=== PATIENT | female | born 1985 | race Caucasian/White ===

== ENCOUNTER 2019-06-10 05:41 | Day surgery (SDC) | payer MEDICAID ==
[2019-06-06 16:22] LABS: BASOPHILS % (AUTO) 0.3 % (0-1); EOSINOPHILS # (AUTO) 0.1 X10'3 (0-0.9); EOSINOPHILS % (AUTO) 1.5 % (0-6); LYMPHOCYTES # (AUTO) 2.5 X10'3 (1.1-4.8); LYMPHOCYTES % (AUTO) 26.3 % (21-51); MEAN CORPUSCULAR HGB CONC 31.7 g/dL (33.0-36.5); MEAN CORPUSCULAR VOLUME 75.8 FL (78-98); MEAN PLATELET VOLUME 9.3 FL (7.4-10.4); MONOCYTES # (AUTO) 0.5 X10'3 (0-0.9); MONOCYTES % (AUTO) 5.6 % (2-12); NEUTROPHILS # (AUTO) 6.4 X10'3 (1.8-7.7); NEUTROPHILS % (AUTO) 66.3 % (42-75); PRE OP HEMATOCRIT 36.4 % (35.0-45.0); PRE OP HEMOGLOBIN 11.6 g/dL (12.0-16.0); PRE OP PLATELET COUNT 274 X10'3 (140-440); RED BLOOD COUNT 4.81 X10'6 (4.20-5.60)
[2019-06-06 16:36] LABS: ALBUMIN 3.4 G/DL (3.4-5.0); ALBUMIN/GLOBULIN RATIO 0.8 (1.1-1.5); ALKALINE PHOSPHATASE 85 IU/L (46-116); BLOOD UREA NITROGEN 9 MG/DL (7-18); BUN/CREATININE RATIO 9.9 (6.6-38.0); CALCIUM 8.7 MG/DL (8.5-10.1); CHLORIDE 104 MMOL/L (99-107); CREATININE 0.91 MG/DL (0.40-0.90); PRE OP ALT 30 U/L (30-65); PRE OP ANION GAP 7 (8-16); PRE OP AST 14 U/L (10-37); PRE OP BILIRUB, TOTAL 0.3 MG/DL (0.0-1.0); PRE OP GLUCOSE 87 MG/DL (70-104); PRE OP POTASSIUM 3.6 MMOL/L (3.4-5.1); PRE OP SODIUM 139 MMOL/L (135-145); TOTAL PROTEIN 7.5 G/DL (6.4-8.2); eGFR 72 ML/MIN
[2019-06-06 17:00] LABS: PRE OP INR 0.9 INR; PRE OP PROTIME 9.5 SECONDS (9.0-12.0)
[2019-06-06 17:18] LABS: HCG SERUM QL NEGATIVE
[2019-06-10] VITALS (18 sets, daily range): BP systolic 115–170; BP diastolic 85–99
[~2019-06-10] VITALS: Ht 172.7 cm; Wt 141.1 kg
[~2019-06-10 05:41] MED LIST: ALBU8.5H8 INH; BUPR150T6 PO; BUSP10TA3 PO; CETI10TA14 PO; FERR325C PO; FLUT16SP2 BOTHNARES; LURA60TA2 PO; MONT10TA24 PO
[2019-06-10] MEDS ORDERED: famotidine 20mg tablet PO ONE (06:00)
[2019-06-10] MEDS ORDERED: ceFOXitin sod/dextrose 2g/50ml 50 ML IV ONE (06:00)
[2019-06-10] MEDS ORDERED: albuterol 2.5 MG/3 ML nebule NEB ONE (06:00)
[2019-06-10] MEDS ORDERED: LIDOcaine 1% (10mg/ml) 2ml vial ONE (06:07)
[2019-06-10] MEDS: ringers solution, lacted 1,000 ML IV SCH ×2 (06:20→23:53)
[2019-06-10] MEDS ORDERED: clindamycin phosphate 40gm vag cream ONE (06:46)
[2019-06-10] MEDS ORDERED: morphine 10mg/ml inj. ONE (06:46)
[2019-06-10] MEDS ORDERED: LIDOcaine 1% 30ml preserv. free vial ONE (06:47)
[2019-06-10] MEDS ORDERED: ceFAZolin 1000mg inj ONE (06:47)
[2019-06-10] MEDS ORDERED: vasoPRESSIN 20 units/ml inj. ONE (06:47)
[2019-06-10] MEDS ORDERED: BUPIVAcaine/PF 2.5 mg/ml (0.25%) 30ml vial ONE (06:47)
[2019-06-10] MEDS ORDERED: midazolam 2 mg/2 ml injection ONE (08:15)
[2019-06-10] MEDS ORDERED: fentaNYL /PF 50mcg/ml 5ml ampule ONE (08:15)
[2019-06-10] MEDS ORDERED: sevoflurane 250ml liquid IH ONE (08:24)
[2019-06-10] MEDS: HYDROmorphone/NS 1 mg/ml CADD 50 ML IV SCH ×8 (09:20→23:00)
[2019-06-10] MEDS ORDERED: CADD PCA waste documentation MC SCH (09:30)
[2019-06-10] MEDS ORDERED: fluoroscein sod 10% (100mg/ml) 5ml vial ONE (09:36)
[2019-06-10] MEDS ORDERED: neostigmine methylsulfate 1 MG/ML 10ml vial ONE (09:36)
[2019-06-10] MEDS ORDERED: rocuronium 10mg/ml inj IV ONE (09:36)
[2019-06-10] MEDS ORDERED: propofol inj 20 ML IV ONE ×3 (09:36→10:46)
[2019-06-10] MEDS ORDERED: LIDOcaine 2% (20mg/ml) 5ml vial ONE (09:36)
[2019-06-10] MEDS ORDERED: glycopyrrolate 0.2mg/ml inj ONE (09:36)
[2019-06-10] MEDS ORDERED: dexamethasone sod phosphate 4mg/ml inj. ONE (09:36)
[2019-06-10] MEDS ORDERED: ondansetron/PF 4mg/2ml inj ONE (09:36)
[2019-06-10] MEDS ORDERED: fentaNYL/PF 50MCG/1 ML 2ML syringe ONE (10:24)
[2019-06-10] MEDS ORDERED: ringers solution, lacted 1,000 ML IV SCH (10:29)
[2019-06-10] MEDS ORDERED: morphine 4 MG/ML inj SYRINge IV PRN ×2 (10:30)
[2019-06-10] MEDS ORDERED: ondansetron/PF 4mg/2ml inj IV PRN ×2 (10:30→11:15)
[2019-06-10] MEDS ORDERED: meperidine/PF 25mg/ml syringe IV PRN ×3 (10:30)
[2019-06-10] MEDS ORDERED: proCHLORperazine 10 MG/2 ml inj IV PRN (10:30)
[2019-06-10] MEDS ORDERED: temazepam 15mg capsule PO PRN (11:15)
[2019-06-10] MEDS ORDERED: HYDROcodone/acetaminophen 10/325mg tab PO PRN (11:15)
[2019-06-10] MEDS ORDERED: CADD PCA waste documentation MC PRN (11:15)
[2019-06-10] MEDS ORDERED: normal saline 500ml IV soln 500 ML IV PRN (11:15)
[2019-06-10] MEDS ORDERED: magnesium hydroxide 30ml (MOM) UD suspension PO PRN (11:15)
[2019-06-10] MEDS ORDERED: HYDROcodone/acetaminophen 5mg/325mg tablet PO PRN (11:15)
[2019-06-10] MEDS ORDERED: naloxone 0.4 mg/ml inj IV PRN (11:15)
--- NOTE | 2019-06-10 11:20 | NUR ---
ADMITTED TO PACU FROM OR ACCOMPANIED BY ANESTHESIA. INTIAL PHYSICAL ASSESSMENT DONE AND RECORDED. AWAKE AND RESPONSE ON ARRIVE YO PACU, REPORT RECEIVED FROM ANESTHESIA.
[2019-06-10] MEDS ORDERED: flumazenil 0.1 mg/ml inj. IV ONE (11:23)
--- NOTE | 2019-06-10 12:30 | NUR ---
PACU DISCHARGE CRITERIA MET, REPORT GIVEN TO FLOOR. DENIES PAIN OR DISCOMFORT, TRANSFERRED TO ROOM IN STABLE GOOD CONDITION.
[2019-06-10] MEDS ORDERED: HYDROmorphone/NS 1 mg/ml CADD 50 ML IV SCH (13:00)
[2019-06-10] MEDS ORDERED: albuterol 2.5 MG/3 ML nebule NEB PRN (13:00)
[2019-06-10] MEDS: simethicone 80mg chew tab PO SCH ×2 (13:24→17:56)
[2019-06-10] MEDS: ketorolac trometh. 30mg/ml inj. IV PRN ×2 (13:24→20:31)
--- NOTE | 2019-06-10 18:15 | NUR ---
Patient in room [facility]. I have received report from Francesca RODRÍGUEZ and had the opportunity to ask questions and assume patient care.
--- NOTE | 2019-06-10 18:21 | NUR ---
Problems reprioritized. Patient report given, questions answered & plan of care reviewed with [place] RODRÍGUEZ.
[2019-06-10] MEDS ORDERED: busPIRone 5mg tablet PO SCH (21:00)
[2019-06-10] MEDS ORDERED: cetirizine 10mg tablet PO SCH (21:00)
[2019-06-10] MEDS ORDERED: lurasidone 60mg tablet PO SCH (21:00)
[2019-06-10] MEDS ORDERED: ferrous sulfate 325mg tablet PO SCH (21:00)
[2019-06-10] MEDS ORDERED: montelukast 10mg tablet PO SCH (21:00)
[2019-06-11] VITALS: BP 126/96
[2019-06-11] MEDS: HYDROmorphone/NS 1 mg/ml CADD 50 ML IV SCH ×4 (01:00→07:00)
[2019-06-11 04:30] VITALS: BP 143/95
[2019-06-11 05:18] LABS: BASOPHILS % (AUTO) 0.1 % (0-1); EOSINOPHILS % (AUTO) 0 % (0-6); HEMOGLOBIN 10.2 g/dl (12.0-16.0); LYMPHOCYTES # (AUTO) 1.2 X10'3 (1.1-4.8); LYMPHOCYTES % (AUTO) 9.2 % (21-51); MEAN CORPUSCULAR HEMOGLOBIN 23.7 PG (27.0-31.0); MEAN CORPUSCULAR HGB CONC 30.8 g/dL (33.0-36.5); MEAN PLATELET VOLUME 8.9 FL (7.4-10.4); MONOCYTES # (AUTO) 0.7 X10'3 (0-0.9); NEUTROPHILS # (AUTO) 11.7 X10'3 (1.8-7.7); NEUTROPHILS % (AUTO) 85.7 % (42-75); PLATELET COUNT 257 X10'3 (140-440); RED BLOOD COUNT 4.28 X10'6 (4.20-5.60); RED CELL DISTRIBUTION WIDTH 20.2 % (11.5-14.5); WHITE BLOOD COUNT 13.6 X10'3 (4.5-11.0)
--- NOTE | 2019-06-11 05:21 | NUR ---
FC and packing removed. Pt tolerated well.
--- NOTE | 2019-06-11 06:18 | NUR ---
Patient in room [facility]. I have received report from [place] RODRÍGUEZ and had the opportunity to ask questions and assume patient care.
--- NOTE | 2019-06-11 06:19 | NUR ---
Problems reprioritized. Patient report given, questions answered & plan of care reviewed with Francesca RODRÍGUEZ.
[2019-06-11] MEDS ORDERED: ringers solution, lacted 1,000 ML IV SCH (06:40)
[2019-06-11 06:45] VITALS: BP 144/91
[2019-06-11 06:48] LABS: ANISOCYTOSIS 3+; MICROCYTOSIS 1+; PLATELET ESTIMATE NORMAL
[2019-06-11] MEDS: simethicone 80mg chew tab PO SCH ×2 (07:16→13:14)
[2019-06-11] MEDS ORDERED: buPROPion SR 150mg tablet PO SCH (08:00)
[2019-06-11] MEDS ORDERED: fluticasone nasal spray 16GM bottle NS SCH (08:00)
--- NOTE | 2019-06-11 09:39 | NUR ---
Attempting to start new IV, patients infiltrated. Patient is a very hard stick. Warming hands up currently to attempt one more time, patient is not happy about starting a new IV but is allowing one more stick to try. Patient has been poked twice with no success.
[2019-06-11 11:17] VITALS: BP 156/102
[2019-06-11 11:20] VITALS: BP 145/90
--- NOTE | 2019-06-11 11:22 | NUR ---
Patient states that she is not taking her anxiety medication, which is not ordered as well, and feels this is why her BP is higher than normal. She also states that she was walking when BP was taken. Retook patients BP and had a lower rate. Patient states that she is having pain as well but will not take [place]. Patient has refused an IV, unable to give Tordol IVP. Patient also states she is very nervous her in the hospital, this is only her second time being in the hospital in her lifetime. She states she hate needles and has white coat syndrome. Will continue to monitor patient.
== END 2019-06-11 14:20 | disposition home or self-care (01) ==
LOC: PAS 05:41 → SUR 3N 11:12 → PAS 06-11 14:20
PROVIDERS: ATTEND Specialist
DX: N80.0 Endometriosis of uterus (principal); N80.3 Endometriosis of pelvic peritoneum; N81.4 Uterovaginal prolapse, unspecified; N87.9 Dysplasia of cervix uteri, unspecified; N39.3 Stress incontinence (female) (male); J45.909 Unspecified asthma, uncomplicated; I10 Essential (primary) hypertension; F41.9 Anxiety disorder, unspecified; F43.10 Post-traumatic stress disorder, unspecified; F31.9 Bipolar disorder, unspecified; D64.9 Anemia, unspecified; G51.0 Bell's palsy; E66.9 Obesity, unspecified; Z68.42 Body mass index [BMI] 45.0-49.9, adult; Z87.891 Personal history of nicotine dependence; Z79.899 Other long term (current) drug therapy; Z79.01 Long term (current) use of anticoagulants
CPT/HCPCS: 36415; 57260; 57288; 57425; 58552; 71046; 80053; 82948; 84703; 85025; 85610; 85730; 86885; 86900; 86901; 93005; C1771; J0690; J0694; J1100; J1170; J1885; J2001; J2250; J2270; J2405; J2704; J2710; J3010; J3490; J7120; A4215; A4314; A4355; A4618; A6250; A6258; A7000; G0378

== ENCOUNTER 2019-06-14 11:07 | Emergency (ER) | payer MEDICAID ==
[~2019-06-14] VITALS: Ht 172.7 cm; Wt 141.4 kg
[2019-06-14 11:10] VITALS: BP 170/106
--- NOTE | 2019-06-14 12:15 | NUR ---
Stat-Lock was off skin upon pt's arrival to the ED, causing pulling on catheter. New stat-lock placed, pt given additional stat-lock for home, and educated on proper placement.
== END 2019-06-14 12:32 | disposition home or self-care (01) ==
LOC: ER 11:07
DX: T83.89XA Other specified complication of genitourinary prosthetic devices, implants and grafts, initial encounter (principal); I10 Essential (primary) hypertension; Z90.710 Acquired absence of both cervix and uterus; Z79.899 Other long term (current) drug therapy; Y92.89 Other specified places as the place of occurrence of the external cause
CPT/HCPCS: 99284

== ENCOUNTER 2019-10-31 16:53 | Emergency (ER) | payer BC, MEDICAID ==
[~2019-10-31] VITALS: Ht 172.7 cm; Wt 148.5 kg
[2019-10-31 18:50] LABS: BASOPHILS % (AUTO) 0.2 % (0-1); EOSINOPHILS # (AUTO) 0.1 X10'3 (0-0.9); EOSINOPHILS % (AUTO) 1.3 % (0-6); HEMATOCRIT 39.7 % (35.0-45.0); HEMOGLOBIN 13.1 g/dl (12.0-16.0); LYMPHOCYTES # (AUTO) 2.7 X10'3 (1.1-4.8); LYMPHOCYTES % (AUTO) 26.8 % (21-51); MEAN CORPUSCULAR HEMOGLOBIN 26.1 PG (27.0-31.0); MEAN CORPUSCULAR HGB CONC 33.1 g/dL (33.0-36.5); MEAN CORPUSCULAR VOLUME 78.9 FL (78-98); MEAN PLATELET VOLUME 8.6 FL (7.4-10.4); MONOCYTES # (AUTO) 0.6 X10'3 (0-0.9); MONOCYTES % (AUTO) 6.4 % (2-12); NEUTROPHILS # (AUTO) 6.4 X10'3 (1.8-7.7); NEUTROPHILS % (AUTO) 65.3 % (42-75); PLATELET COUNT 289 X10'3 (140-440); RED BLOOD COUNT 5.03 X10'6 (4.20-5.60); RED CELL DISTRIBUTION WIDTH 17.4 % (11.5-14.5); WHITE BLOOD COUNT 9.9 X10'3 (4.5-11.0)
[2019-10-31 18:59] VITALS: BP 156/76
[2019-10-31 19:12] LABS: ALANINE AMINOTRANSFERASE 34 U/L (12-78); ALBUMIN 3.5 G/DL (3.4-5.0); ALBUMIN/GLOBULIN RATIO 0.8 (1.1-1.5); ALKALINE PHOSPHATASE 90 IU/L (46-116); ANION GAP 7 (8-16); ASPARTATE AMINO TRANSFERASE 18 U/L (10-37); BILIRUBIN,TOTAL 0.5 MG/DL (0.1-1.0); BLOOD UREA NITROGEN 9 MG/DL (7-18); BUN/CREATININE RATIO 10.2 (6.6-38.0); CALCIUM 9.9 MG/DL (8.5-10.1); CHLORIDE 104 MMOL/L (99-107); CREATININE 0.88 MG/DL (0.40-0.90); GLUCOSE 91 MG/DL (70-104); POTASSIUM 4.2 MMOL/L (3.5-5.1); SODIUM 141 MMOL/L (135-145); TOTAL CARBON DIOXIDE 30.2 MMOL/L (24-32); TOTAL PROTEIN 7.8 G/DL (6.4-8.2); eGFR 74 ML/MIN
[2019-10-31 19:24] LABS: URINE HCG NEGATIVE (NEG)
[2019-10-31 19:33] LABS: CLARITY,URINE CLEAR (Clear); COLOR,URINE YELLOW (Yellow); GLUCOSE, URINE NEGATIVE (Neg); KETONES,URINE NEGATIVE (Neg); LEUKOCYTE ESTERASE ,URINE NEGATIVE (Neg); NITRITES, URINE NEGATIVE (Neg); OCCULT BLOOD,URINE NEGATIVE (Neg); PH,URINE 6.5 (4.8-8.0); PROTEIN,URINE NEGATIVE (Neg); UROBILINOGEN,URINE 0.2 E.U/dL (0.2-1.0)
[2019-10-31 19:39] LABS: UA COLLECTION TYPE CLN CATCH MIDSTREAM
== END 2019-10-31 20:02 | disposition home or self-care (01) ==
LOC: ER 16:54
DX: R60.0 Localized edema (principal); I10 Essential (primary) hypertension; F41.9 Anxiety disorder, unspecified; F32.9 Major depressive disorder, single episode, unspecified; E66.9 Obesity, unspecified; R00.0 Tachycardia, unspecified; Z79.899 Other long term (current) drug therapy; Z90.710 Acquired absence of both cervix and uterus; X58.XXXA Exposure to other specified factors, initial encounter; Y93.89 Activity, other specified; Y92.89 Other specified places as the place of occurrence of the external cause; Y99.8 Other external cause status
CPT/HCPCS: 36415; 80053; 81003; 81025; 85025; 93005; 99284